=== PATIENT | male | born 1990 | race Caucasian/White ===

== ENCOUNTER 2020-04-04 16:11 | Emergency (ER) | payer BC ==
[~2020-04-04] VITALS: Ht 177.8 cm; Wt 124.1 kg
[2020-04-04 16:23] VITALS: BP 138/99; Ht 177.8 cm; Wt 124.1 kg
[2020-04-04] MEDS ORDERED: ABILIFY10 MG PO (16:24)
[2020-04-04] MEDS ORDERED: AMITIZA8 MCG PO (16:25)
[2020-04-04] MEDS ORDERED: PROTONIX40 MG PO (16:25)
[2020-04-04] MEDS ORDERED: EFFEXOR XR150 MG PO (16:26)
[2020-04-04] MEDS ORDERED: COREG6.25 MG PO (16:26)
[2020-04-04] MEDS ORDERED: PHENERGAN25 M1 PO (16:27)
[2020-04-04] MEDS ORDERED: LIBRIUM5 MG PO (16:28)
[2020-04-04] MEDS ORDERED: ULTRAM50 MG PO (16:29)
[2020-04-04] MEDS ORDERED: LISINOPRIL-HCT1 EAC8 PO (16:32)
[2020-04-04] MEDS ORDERED: GABAPENTIN300 MG PO (16:32)
[2020-04-04 16:37] LABS: BASOPHILS 0.9 % (0-2); EOSINOPHILS 2.8 % (0-7); HEMATOCRIT 43.7 % (42.0-54.0); HEMOGLOBIN 14.9 g/dL (13.5-17.5); IMMATURE GRANULOCYTES 0.7 % (0-5); LYMPHOCYTES 23.4 % (15-50); MCH 33.6 pg (26.0-34.0); MCHC 34.1 g/dL (31.0-37.0); MCV 98.4 fL (80.0-100.0); MEAN PLATELET VOLUME 11.7 fL (7.4-10.4); MONOCYTES 7.7 % (2-11); NEUTROPHILS 64.5 % (40-80); PLATELET COUNT 271 10x3/uL (130-400); RBC 4.44 10x6/uL (4.20-6.10); RDW 13.1 % (11.5-14.5); WBC 9.7 10x3/uL (4.8-10.8)
[2020-04-04 16:59] LABS: CALC OSMOLALITY 276 mosm/kg (275-300); CALCIUM 9.6 mg/dL (8.5-10.1); CARBON DIOXIDE 28.3 mmol/L (21.0-32.0); CHLORIDE - SERUM 103 mmol/L (98-107); GLUCOSE 94 mg/dL (74-106); POTASSIUM - SERUM 3.5 mmol/L (3.5-5.1); SODIUM 140 mmol/L (136-145); UREA NITROGEN 8 mg/dL (7-18); eGFR NON AFRICAN AMERICAN > 90 mL/min (90-120)
[2020-04-04 17:05] LABS: ACETAMINOPHEN 2.9 ug/mL (10.0-30.0); ALBUMIN 4.2 g/dL (3.4-5.0); ALKALINE PHOSPHATASE 91 U/L (30-120); ALT (SGPT) 152 U/L (10-68); PROTEIN - SERUM 7.7 g/dL (6.4-8.2)
[2020-04-04 17:10] LABS: AMYLASE - SERUM 37 U/L (25-115); LIPASE 197 U/L (73-393)
[2020-04-04 17:15] LABS: UDS - AMPHET NEGATIVE QUAL (NEGATIVE); UDS - BARB NEGATIVE QUAL (NEGATIVE); UDS - BENZO POSITIVE QUAL (NEGATIVE); UDS - COCAINE NEGATIVE QUAL (NEGATIVE); UDS - OPIATE POSITIVE QUAL (NEGATIVE); UDS - PCP NEGATIVE QUAL (NEGATIVE); UDS - THC NEGATIVE QUAL (NEGATIVE)
[2020-04-04 17:24] LABS: BILIRUBIN NEGATIVE (NEGATIVE); GLUCOSE NEGATIVE (NEGATIVE); KETONE NEGATIVE (NEGATIVE); NITRITE NEGATIVE (NEGATIVE); UROBILINOGEN NORMAL (NORMAL)
--- NOTE | 2020-04-04 17:43 | NUR ---
dr. brown notified and reviewed pt's behavior and assessment results. pt is a zero risk per dr. brown. dr. brown stated to give resources to pt at time of discharge. no further orders at this time. Resources reviewed with pt and he verbalizied understanding.
== END 2020-04-04 19:16 | disposition other institution (70) ==
LOC: D.ER 16:11
PROVIDERS: Family Medicine
DX: F32.9 Major depressive disorder, single episode, unspecified (principal); R45.851 Suicidal ideations; K21.9 Gastro-esophageal reflux disease without esophagitis